=== PATIENT | male | born 1995 | race Hispanic/Latino ===

== ENCOUNTER 2017-10-29 17:06 | Emergency (ER) | payer OTHER ==
[2017-10-29] MEDS ORDERED: LIDOCAINE 1% MPF 5 ML VIAL ONE (17:21)
[2017-10-29] MEDS ORDERED: LIDOCAINE 2% W/EPI 1:200,000 MPF 20 ML VIAL IM ONE (17:28)
--- NOTE | 2017-10-29 18:03 | ER ---
Nurse's Notes [facility] Name: Braxton Chávez Age: 22 yrs Sex: Male : 1995 Arrival Date: 10/29/2017 Time: 17:10 Bed 23 Private MD: None, None Diagnosis: Laceration without foreign body of left hand Presentation: 10/29 17:12 Presenting complaint: Patient states: Cut palm of left hand with knife while slicing aj cheese just [employer]. Transition of care: patient was not received from another setting of care. Complicating Factors: There are no complicating factors for this patient. Onset of symptoms was October 29, 2017. Initial Sepsis Screen: Does the patient meet any 2 criteria? No. Patient's initial sepsis screen is negative. Does the patient have a suspected source of infection? No. Patient's initial sepsis screen is negative. Care prior to arrival: None. 17:12 Method Of Arrival: Ambulatory 17:12 Acuity: ARLEN 4 aj Triage Assessment: 17:13 General: Appears in no apparent distress. comfortable, Behavior is calm, cooperative, aj appropriate for age. Pain: Complains of pain in palm of left hand Pain currently is 4 out of 10 on a pain scale. Neuro: Level of Consciousness is awake, alert, obeys commands, Oriented to person, place, time, situation, Appropriate for age. Respiratory: Airway is patent Respiratory effort is even, unlabored, Respiratory pattern is regular, symmetrical. Derm: Skin is intact, is healthy with good turgor, Skin is pink, warm \T\ dry. normal. Injury Description: Laceration sustained to palm of left hand is clean, 0.5 to 2.5 cm long, was sustained less than 30 minutes ago. is bleeding a small amount. Historical: - Allergies: 17:13 No Known Allergies; aj - Home Meds: 17:13 None [Active]; aj - PMHx: 17:13 None; aj - PSHx: 17:13 None; aj - Immunization history:: Last tetanus immunization: up to date. - Social history:: Smoking status: Patient/guardian denies using tobacco. Screenin:28 Abuse screen: Denies threats or abuse. Nutritional screening: No deficits noted. tl3 Tuberculosis screening: No symptoms or risk factors identified. Fall Risk None identified. Assessment: 17:28 General: Appears in no apparent distress. comfortable, well groomed, well developed, tl3 well nourished, Behavior is calm, cooperative, appropriate for age, quiet. Pain: Complains of pain in palm of left hand Pain currently is 10 out of 10 on a pain scale. Neuro: Level of Consciousness is awake, alert, obeys commands, Oriented to person, place, time, situation, Appropriate for age. Cardiovascular: Heart tones S1 S2 present. Respiratory: Airway is patent Trachea midline Respiratory effort is even, unlabored, Respiratory pattern is regular, symmetrical. GI: No signs and/or symptoms were reported involving the gastrointestinal system. : No signs and/or symptoms were reported regarding the genitourinary system. EENT: No signs and/or symptoms were reported regarding the EENT system. Derm: No signs and/or symptoms reported regarding the dermatologic system. Musculoskeletal: Capillary refill < 3 seconds, in left fingers. Reports cut across hand while cutting the cheese at work. Injury Description: Laceration sustained to palm of left hand is clean, 0.5 to 2.5 cm long, not bleeding. 18:07 Reassessment: Patient appears in no apparent distress at this time. No changes from tl3 previously documented assessment. Patient and/or family updated on plan of care and expected duration. Pain level reassessed. Patient is alert, oriented x 3, equal unlabored respirations, skin warm/dry/pink. pt suturing complete and splint placed for protection of suture site. Vital Signs: 17:13 BP 124 / 66; Pulse 60; Resp 16; Temp 97.9; Pulse Ox 98% on R/A; Weight 61.23 kg; Height aj 5 ft. 4 in. (162.56 cm); Pain 5/10; 18:07 BP 122 / 68; Pulse 68; Resp 16; Pulse Ox 99% ; tl3 17:13 Body Mass Index 23.17 (61.23 kg, 162.56 cm) ED Course: 17:10 Patient arrived in ED. mr 17:10 None, None is Private Physician. mr 17:13 Triage completed. aj 17:13 Arm band placed on right wrist. Patient placed in an exam room. aj 17:15 Wilfrido Van PA is PHCP. cp 17:15 Wilfrido Parish MD is Attending Physician. cp 17:16 Yahaira Paredes, PATTIE is Primary Nurse. tl3 17:28 No apparent distress. tl3 17:28 Patient has correct armband on for positive identification. tl3 17:28 Wound care: to laceration hand soaking in saline and hibacleanse. tl3 18:07 No provider procedures requiring assistance completed. Patient did not have IV access tl3 during this emergency room visit. Administered Medications: 17:45 Drug: Lidocaine (2 %) 5 ml {Note: by Wilfrido Van.} Volume: 5 ml; Route: Infiltration; tl3 18:10 Follow up: Response: No adverse reaction tl3 Outcome: 18:03 Discharge ordered by . uriel 18:07 Discharged to home ambulatory. tl3 18:07 Condition: good 18:07 Discharge instructions given to patient, Instructed on discharge instructions, follow up and referral plans. Demonstrated understanding of instructions, follow-up care, wound care. 18:09 Patient left the ED. tl3 Signatures: Raeann Chacko, Benita Colby RN, Corey, PA PA cp Lowrey, Tammy, RN RN tl3
--- NOTE | 2017-10-29 18:04 | EDPHYS ---
Physician Documentation [facility] Name: Braxton Chávez Age: 22 yrs Sex: Male : 1995 Arrival Date: 10/29/2017 Time: 17:10 Bed 23 Private MD: None, None ED Physician Wilfrido Parish HPI: 10/29 17:20 This 22 yrs old Male presents to ER via Ambulatory with complaints of cp Laceration To Hand. 17:20 The patient has a laceration occurred at work, and there are no complicating factors. cp The injury was accidental. The laceration(s) is(are) located on the palm of left hand. 17:20 Associated signs and symptoms: Pertinent negatives: heavy bleeding, numbness distal to cp injury, suspected foreign body. Historical: - Allergies: 17:13 No Known Allergies; aj - Home Meds: 17:13 None [Active]; aj - PMHx: 17:13 None; aj - PSHx: 17:13 None; aj - Immunization history:: Last tetanus immunization: up to date. - Social history:: Smoking status: Patient/guardian denies using tobacco. ROS: 17:28 Constitutional: Negative for body aches, chills, fever, poor PO intake. cp 17:28 Eyes: Negative for injury, pain, redness, and discharge. cp 17:28 ENT: Negative for drainage from ear(s), ear pain, sore throat, difficulty swallowing, difficulty handling secretions. 17:28 Respiratory: Negative for cough, wheezing. 17:28 Abdomen/GI: Negative for abdominal pain, vomiting, diarrhea, constipation. 17:28 Skin: Positive for laceration(s), of the palm of left hand. 17:28 All other systems are negative. Exam: 10/28 17:30 Constitutional: The patient appears in no acute distress, alert, awake, well developed, cp well nourished. 17:30 Head/Face: Normocephalic, atraumatic. cp 17:30 Eyes: Periorbital structures: appear normal, Conjunctiva: normal, no exudate, no injection, Lids and lashes: appear normal, bilaterally. 17:30 ENT: External ear(s): are unremarkable, Nose: is normal, Mouth: is normal. 17:30 Chest/axilla: Inspection: normal. 17:30 Cardiovascular: Rate: normal, Rhythm: regular. 17:30 Respiratory: the patient does not display signs of respiratory distress, Respirations: normal, no use of accessory muscles, no retractions, no splinting, no tachypnea, labored breathing, is not present. 17:30 Abdomen/GI: Exam negative for discomfort, distension, guarding, Inspection: abdomen appears normal. 17:30 Musculoskeletal/extremity: ROM: intact in all extremities, Perfusion: the extremity is normally perfused throughout, Sensation intact. Tendon exam: specific tendon testing normal through active and passive range of motion 17:30 Skin: injury, laceration(s), the wound is approximately 3 cm(s), of the payan side of left hand just proximal to metacarpal head of index finger, that can be described as clean, linear, with mild bleeding. Vital Signs: 10/29 17:13 BP 124 / 66; Pulse 60; Resp 16; Temp 97.9; Pulse Ox 98% on R/A; Weight 61.23 kg; Height aj 5 ft. 4 in. (162.56 cm); Pain 5/10; 18:07 BP 122 / 68; Pulse 68; Resp 16; Pulse Ox 99% ; tl3 17:13 Body Mass Index 23.17 (61.23 kg, 162.56 cm) aj Laceration: 17:53 Wound Repair of 3cm ( 1.2in ) subcutaneous laceration to palm of left hand. Linear cp shaped.. Distal neuro/vascular/tendon intact. Anesthesia: Wound infiltrated with 3 mls of 2% lidocaine. Wound prep: Moderate cleansing by me, Wound irrigation by me. Skin closed with 5 4-0 Prolene using interrupted sutures and sterile technique. Dressed with Bacitracin, 4x4's. Patient tolerated well. MDM: 17:15 Patient medically screened. cp 17:45 Differential diagnosis: superficial laceration, tendon injury, vascular injury. cp 18:00 Data reviewed: vital signs, nurses notes, and as a result, I will discharge patient. cp 18:00 Counseling: I had a detailed discussion with the patient and/or guardian regarding: the cp historical points, exam findings, and any diagnostic results supporting the discharge/admit diagnosis, to return to the emergency department if symptoms worsen or persist or if there are any questions or concerns that arise at home. 18:00 Response to treatment: the patient's symptoms have markedly improved after treatment, cp and as a result, I will discharge patient. 10/29 17:53 Order name: Wound dressing; Complete Time: 18:11 cp 10/29 17:53 Order name: Prolene, Sutures; Complete Time: 18:10 cp 10/29 17:53 Order name: Dressing - Wound; Complete Time: 18:10 cp 10/29 17:53 Order name: Gloves, Sterile; Complete Time: 18:10 cp 10/29 17:53 Order name: Setup Suture Tray; Complete Time: 18:10 cp 10/29 17:53 Order name: Splint: aluminum volar splint; Complete Time: 18:10 cp 10/29 17:53 Order name: Adan Wrap; Complete Time: 18:10 cp Administered Medications: 17:45 Drug: Lidocaine (2 %) 5 ml {Note: by Wilfrido Van.} Volume: 5 ml; Route: Infiltration; tl3 18:10 Follow up: Response: No adverse reaction tl3 Disposition: 19:13 Co-signature as Attending Physician, Wilfrido Parish MD I agree with the assessment and [facility] plan of care. Disposition: 10/29/17 18:03 Discharged to Home. Impression: Laceration without foreign body of left hand. - Condition is Stable. - Discharge Instructions: Laceration Care, Adult. - Medication Reconciliation Form, Thank You Letter, Antibiotic Education, Prescription Opioid Use form. - Follow up: Private Physician; When: 1 - 2 days; Reason: Wound Recheck. - Problem is new. - Symptoms have improved. Signatures: Raeann Chacko RN Wilfrido Bowers MD MD cha Page, Corey, PA PA cp Lowrey, Tammy RN RN tl3
== END 2017-10-29 18:09 | disposition home or self-care (01) ==
LOC: ER 17:06
PROC: 0JQK0ZZ Repair Left Hand Subcutaneous Tissue and Fascia, Open Approach (ICD-10-PCS; principal; 2017-10-29)
DX: S61.412A Laceration without foreign body of left hand, initial encounter (principal); W45.8XXA Other foreign body or object entering through skin, initial encounter; Y93.89 Activity, other specified; Y92.89 Other specified places as the place of occurrence of the external cause; Y99.8 Other external cause status
CPT/HCPCS: 99283

== ENCOUNTER 2021-08-20 11:19 | Emergency (ER) | payer BC, OTHER ==
--- OUTSIDE RECORDS SUMMARY | 2021-08-20 11:23 | XMS REPORT | Continuity of Care Document ---
:1995 Author Organization [facility] t Address [address] [place] [address] Care Team Providers Name Role Phone Brenda Mittal Primary Care Physician Radiology Attending Clinician Unavailable RADIOLOGY Attending Clinician Unavailable Doctor Unassigned, [place] Attending Clinician Unavailable Michelle Hightower Attending Clinician Payers Payer Name Policy Type Policy Number Effective Date Expiration Date Elicia BENSON [id number] 2011 HEALTH 00:00:00 Problems Condition Condition Condition Status Onset Resolution Last Treating Co mments Source Name Details Category Date Date Treatment Clinician Date No known No known Disease Unive rs active active ity of problems problems [facility] Allergies, Adverse Reactions, Alerts Allergy Allergy Status Severity Reaction(s) Onset Inactive Treating Comm ents Source Name Type Date Date Clinician NO KNOWN Drug Active Univers ALLERGIE Class ity of S [facility] Social History Social Habit Start Date Stop Date Quantity Comments Source Exposure to Yes [facility] SARS-CoV-2 [facility] (event) Branch Tobacco use and 2012-12-28 2012-12-28 Never used Universit y of exposure 00:00:00 00:00:00 [facility] Alcohol intake 2012-12-28 2012-12-28 Current University of 00:00:00 00:00:00 non-drinker of [facility] alcohol Branch (finding) Sex Assigned At [birth year] Universit y of 00:00:00 00:00:00 [facility] Smoking Status Start Date Stop Date Source Never smoker [facility] Medications Ordered Filled Start Stop Current Ordering Indication Dosage Frequency Signature Comments Components Source Medication Medication Date Date Medication? Clinician (SIG) Name Name predniSONE 2020-0 2020- No 40mg 40 mg, Univ ers (DELTASONE) 8-25 08-25 Oral, ity of tablet 40 08:30: 07:48 [place]CE, [place] :00 dose, Tue Medical 03/06/20 at Branch 0330, TOBY famotidine 2020-0 Yes [id number] 40mg Take 1 Univers (PEPCID) 40 8-25 tablet by ity of mg tablet 00:00: mouth [place] 00 daily. Medical Branch albuterol 2020-0 Yes [id number] 2{puff} Inhale 2 Univers 90 8-25 Puffs ity of mcg/actuati 00:00: every 4 [place] as on inhaler 00 (four) Medical hours as Branch needed for Wheezing or Shortness of Breath. famotidine 2020-0 Yes [id number] 40mg Take 1 Univers (PEPCID) 40 8-25 tablet by ity of mg tablet 00:00: mouth [place] 00 daily. Medical Branch albuterol 2020-0 Yes [id number] 2{puff} Inhale 2 Univers 90 8-25 Puffs ity of mcg/actuati 00:00: every 4 [place] on inhaler 00 (four) Medical hours as Branch needed for Wheezing or Shortness of Breath. famotidine 2020-0 Yes [id number] 40mg Take 1 Univers (PEPCID) 40 8-25 tablet by ity of mg tablet 00:00: mouth [place] 00 daily. Medical Branch albuterol 2020-0 Yes [id number] 2{puff} Inhale 2 Univers 90 8-25 Puffs ity of mcg/actuati 00:00: every 4 [place] on inhaler 00 (four) Medical hours as Branch needed for Wheezing or Shortness of Breath. Immunizations Ordered Immunization Filled Immunization Date Status Commen ts Source Name Name HPV 2011-06-19 Completed University 00:00:00 [facility] Influenza Virus 2011-06-19 Completed Universit y of Vaccine 00:00:00 [facility] HPV 2011-06-19 Completed [facility] 00:00:00 [facility] Influenza Virus 2011-06-19 Completed Universit y of Vaccine 00:00:00 [facility] HPV 2011-06-19 Completed University of 00:00:00 [facility] Influenza Virus 2011-06-19 Completed Universit y of Vaccine 00:00:00 [facility] HPV 2010-04-30 Completed University of 00:00:00 [facility] Influenza Virus 2010-04-30 Completed Universit y of Vaccine 00:00:00 [facility] HPV 2010-04-30 Completed University of 00:00:00 [facility] Influenza Virus 2010-04-30 Completed Universit y of Vaccine 00:00:00 [facility] HPV 2010-04-30 Completed University of 00:00:00 [facility] Influenza Virus 2010-04-30 Completed Universit y of Vaccine 00:00:00 [facility] HPV 2010-02-25 Completed University of 00:00:00 [facility] Varicella 2010-02-25 Completed University of (varivax)(chicken 00:00:00 [place] [facility] edical pox) Branch HPV 2010-02-25 Completed University of 00:00:00 [facility] Varicella 2010-02-25 Completed University of (varivax)(chicken 00:00:00 [place] [facility] [place] pox) Branch HPV 2010-02-25 Completed University of 00:00:00 [facility] Varicella 2010-02-25 Completed University of (varivax)(chicken 00:00:00 [place] [facility] pox) Branch HEPATITIS A 2007-03-05 Completed University of 00:00:00 [facility] Meningococcal 2007-03-05 Completed University of Vaccine 00:00:00 [facility] HEPATITIS A 2007-03-05 Completed University of 00:00:00 [facility] Meningococcal 2007-03-05 Completed University of Vaccine 00:00:00 [facility] HEPATITIS A 2007-03-05 Completed University of 00:00:00 [facility] Meningococcal 2007-03-05 Completed University of Vaccine 00:00:00 [facility] HEPATITIS A 2006 Completed University of 00:00:00 [facility] Td 2006 Completed University of 00:00:00 [facility] HEPATITIS A 2006 Completed University of 00:00:00 [facility] Td 2006 Completed University of 00:00:00 [facility] HEPATITIS A 2006 Completed University of 00:00:00 [facility] Td 2006 Completed University of 00:00:00 [facility] Varicella 2005-04-22 Completed University of (varivax)(chicken 00:00:00 [facility] edical pox) Branch Varicella 2005-04-22 Completed University of (varivax)(chicken 00:00:00 [facility] edical pox) Branch Varicella 2005-04-22 Completed University of (varivax)(chicken 00:00:00 [facility] edical pox) Branch Polio (IPV/OPV) 1998-02-13 Completed Universit y of 00:00:00 [facility] DTP 1998-02-13 Completed University of 00:00:00 [facility] MMR 1998-02-13 Completed University of 00:00:00 [facility] Polio (IPV/OPV) 1998-02-13 Completed Universit y of 00:00:00 [facility] DTP 1998-02-13 Completed University of 00:00:00 [facility] MMR 1998-02-13 Completed University of 00:00:00 [facility] Polio (IPV/OPV) 1998-02-13 Completed Universit y of 00:00:00 [facility] DTP 1998-02-13 Completed University of 00:00:00 [facility] MMR 1998-02-13 Completed University of 00:00:00 [facility] DTP 1995-02-03 Completed University of 00:00:00 [facility] HIB 4 Dose Schedule 1995-02-03 Completed Unive rsity of 00:00:00 [facility] MMR 1995-02-03 Completed University of 00:00:00 [facility] DTP 1995-02-03 Completed University of 00:00:00 [facility] HIB 4 Dose Schedule 1995-02-03 Completed Unive rsity of 00:00:00 [facility] MMR 1995-02-03 Completed University of 00:00:00 [facility] DTP 1995-02-03 Completed University of 00:00:00 [facility] HIB 4 Dose Schedule 1995-02-03 Completed Unive rsity of 00:00:00 [facility] MMR 1995-02-03 Completed University of 00:00:00 [facility] DTP 1994 Completed University of 00:00:00 [facility] HIB 4 Dose Schedule 1994 Completed Unive rsity of 00:00:00 [facility] Hep B, Adol or Pedi 1994 Completed Unive rsity of Dosage 00:00:00 [facility] Polio (IPV/OPV) 1994 Completed Universit y of 00:00:00 [facility] Branch DTP 1994 Completed University of 00:00:00 [facility] HIB 4 Dose Schedule 1994 Completed Unive rsity of 00:00:00 [place] [facility] Hep B, Adol or Pedi 1994 Completed Unive rsity of Dosage 00:00:00 [facility] Polio (IPV/OPV) 1994 Completed Universit y of 00:00:00 [facility] DTP 1994 Completed University of 00:00:00 [facility] HIB 4 Dose Schedule 1994 Completed Unive rsity of 00:00:00 [facility] Hep B, Adol or Pedi 1994 Completed Unive rsity of Dosage 00:00:00 [facility] Polio (IPV/OPV) 1994 Completed Universit y of 00:00:00 [facility] DTP 1994 Completed University of 00:00:00 [facility] HIB 4 Dose Schedule 1994 Completed Unive rsity of 00:00:00 [facility] Polio (IPV/OPV) 1994 Completed Universit y of 00:00:00 [facility] DTP 1994 Completed University of 00:00:00 [facility] HIB 4 Dose Schedule 1994 Completed Unive rsity of 00:00:00 [facility] Branch Polio (IPV/OPV) 1994 Completed Universit y of 00:00:00 [facility] DTP 1994 Completed University of 00:00:00 [facility] HIB 4 Dose Schedule 1994 Completed Unive rsity of 00:00:00 [facility] Polio (IPV/OPV) 1994 Completed Universit y of 00:00:00 [facility] DTP 1994 Completed University of 00:00:00 [facility] HIB 4 Dose Schedule 1994 Completed Unive rsity of 00:00:00 [facility] Branch Hep B, Adol or Pedi 1994 Completed Unive rsity of Dosage 00:00:00 [facility] Polio (IPV/OPV) 1994 Completed Universit y of 00:00:00 [facility] DTP 1994 Completed University of 00:00:00 [facility] HIB 4 Dose Schedule 1994 Completed Unive rsity of 00:00:00 [facility] Hep B, Adol or Pedi 1994 Completed Unive rsity of Dosage 00:00:00 [facility] Polio (IPV/OPV) 1994 Completed Universit y of 00:00:00 [facility] DTP 1994 Completed University of 00:00:00 [facility] HIB 4 Dose Schedule 1994 Completed Unive rsity of 00:00:00 [facility] Hep B, Adol or Pedi 1994 Completed Unive rsity of Dosage 00:00:00 [facility] Polio (IPV/OPV) 1994 Completed Universit y of 00:00:00 [facility] Hep B, Adol or Pedi 1994 Completed Unive rsity of Dosage 00:00:00 [facility] Hep B, Adol or Pedi 1994 Completed Unive rsity of Dosage 00:00:00 [facility] Hep B, Adol or Pedi 1994 Completed Unive rsity of Dosage 00:00:00 [facility] Vital Signs Vital Name Observation Time Observation Value Comments Source Systolic blood 2020-03-06 06:27:00 151 mm[Hg] Univer sity of pressure [facility] Diastolic blood 2020-03-06 06:27:00 87 mm[Hg] Unive rsity of pressure [facility] Body temperature 2020-03-06 06:27:00 36.67 [facility] rate 2020-03-06 06:27:00 20 /min [facility] Body weight 2020-03-06 06:27:00 63.504 [facility] Oxygen saturation in 2020-03-06 06:27:00 99 /min [facility] Arterial blood by [facility] Pulse oximetry Branch Systolic blood 2020-03-06 06:27:00 151 mm[Hg] Univer sity of pressure [facility] Diastolic blood 2020-03-06 06:27:00 87 mm[Hg] Unive rsity of pressure [facility] Body temperature 2020-03-06 06:27:00 36.67 [facility] Respiratory rate 2020-03-06 06:27:00 20 /min [facility] Body weight 2020-03-06 06:27:00 63.504 kg [facility] Oxygen saturation in 2020-03-06 06:27:00 99 /min [facility] Arterial blood by [facility] Pulse oximetry [place] Procedures Procedure Date / Time Performed Performing Clinician [facility] e ASSIGNMENT OF BENEFITS 2021-04-08 20:02:23 Doctor Unassigned, No [facility] XR CHEST 1 VW 2020-03-06 06:50:17 Jai Sheth [place] o f [facility] NOTICE OF PRIVACY 2020-03-06 06:17:57 Doctor Unassigned, No [facility] Encounters Start End Encounter Admission Attending Care Care Encounter Source Date/Time Date/Time Type Type Clinicians Facility Department ID 2021-04-08 2021-04-08 Hospital Radiology [facility] [id number] Univers 15:05:05 23:59:00 Encounter Vamsi [id number] ity of [place] [id number] [facility] [id number] [facility] 806 Branch 2021-04-08 2021-04-08 Outpatient R RADIOLOGY [facility] [id number] Univers 00:00:00 00:00:00 ity of [facility] 2021-04-08 2021-04-08 Orders Doctor QUAN [id number] Univers 00:00:00 00:00:00 Only Unassigned, MEHRDAD [id number] ity of [place] [facility] [id number] [place] [address] [id number] [facility] 009 Branch 2020-03-06 2020-03-06 Emergency Jai Sheth [facility] [id number] 01:29:00 02:55:00 Michelle Agustin [id number] [place] [id number] [place] [id number] 2020-03-06 2020-03-06 Emergency Jai Sheth [facility] [id number] Univers 01:29:00 02:55:00 Michelle Agustin [id number] i ty of [place] [id number] [facility] [id number] [place] [id number] Branch 2020-03-06 2020-03-06 Emergency X [facility] ERT [id number] Univers 01:29:00 01:29:00 ity of [facility] Results This patient has no known results.
[2021-08-20 12:22] LABS: Absolute Lymphocytes (CBC) 1.5 K/uL (0.7-4.9); Hematocrit 45.8 % (39.6-49.0); Lymphocytes % 14.7 % (15.3-44.8); MPV 7.5 fL (7.6-11.3); RBC Red Blood Cell Count 4.93 M/uL (4.33-5.43)
[2021-08-20] MEDS ORDERED: MAGNES/ALUMIN/SIMET 30ML UCUP ONE (12:31)
[2021-08-20] MEDS ORDERED: ONDANSETRON 4 MG/2 ML VIAL ONE (12:32)
[2021-08-20] MEDS ORDERED: LIDOCAINE VISCOUS 2% SOLN 15 ML UDC ONE (12:32)
[2021-08-20] MEDS ORDERED: FAMOTIDINE 20 MG/2 ML VIAL IV ONE (12:32)
[2021-08-20] MEDS ORDERED: NA CHLORIDE 0.9% 1,000 ML ONE (12:32)
[2021-08-20 12:39] LABS: Albumin 4.2 g/dL (3.4-5.0); Bilirubin Direct 0.2 mg/dL (0-0.2); Bilirubin Total 0.7 mg/dL (0.2-1.0); Potassium 3.2 mmol/L (3.5-5.1); Protein, Total 7.9 g/dL (6.4-8.2)
[2021-08-20 12:43] LABS: Urine Blood Negative (Negative); Urine Glucose Negative (Negative); Urine Protein Negative (Negative); Urine Specific Gravity 1.015 (1.005-1.030); Urine pH 8.5 (5.0-7.0)
--- NOTE | 2021-08-20 13:12 | RAD REPORT ---
EXAM DESCRIPTION: CT - Abdomen Pelvis W Contrast - 08/20/2021 12:48 pm CLINICAL HISTORY: ABD PAIN COMPARISON: No comparisons TECHNIQUE: Biphasic, helical CT imaging of the abdomen and pelvis was performed following 100 ml non -ionic IV contrast. No oral contrast administered. All CT scans are performed using dose optimization technique as appropriate and may include automated exposure control or mA/KV adjustment according to patient size. FINDINGS: No suspicious findings in the lung bases. The liver, spleen, and pancreas show no suspicious findings. Gallbladder and biliary tree are also wi thout suspicious finding. Symmetric renal function is seen with no hydronephrosis or suspicious renal mass. No pyelonephritis o r acute parenchymal process. No bladder abnormalities identified in the contracted urinary bladder. N o adrenal abnormalities. No dilated bowel loops or bowel wall thickening. Appendix is normal. No free air, free fluid or infla mmatory stranding. No hernia, mass or bulky lymphadenopathy. No suspicious bony findings. IMPRESSION: Contrast enhanced CT abdomen and pelvis showing no significant or suspicious finding.
--- NOTE | 2021-08-20 15:04 | EDPHYS ---
Physician Documentation [facility] Name: Braxton Chávez Age: 26 yrs Sex: Male : 1995 Arrival Date: 08/20/2021 Time: 11:22 Bed 6 Private MD: ED Physician Luis Fajardo HPI: 08/20 12:35 This 26 yrs old Male presents to ER via Ambulatory with complaints of ma2 Abdominal Pain. 12:35 Associated signs and symptoms: Pertinent negatives: anorexia, constipation, dysuria, ma2 fever, headache, testicular pain, vomiting. Patient has epigastric pain for 4 weeks on and off, got worse last 2 days, also had vomiting nonbloody, nonbilious over the last 2 days.. Historical: - Allergies: 11:53 No Known Allergies; jl7 - Home Meds: 11:53 Famotidine Oral [Active]; jl7 - PMHx: 11:53 GERD; jl7 - PSHx: 11:53 None; jl7 - Immunization history:: Client reports receiving the 2nd dose of the Covid vaccine, Moderna. - Social history:: Smoking status: Patient denies any tobacco usage or history of. - Family history:: not pertinent. ROS: 12:35 Constitutional: Negative for fever, chills, and weight loss. ma2 12:35 All other systems are negative. Exam: 12:35 Constitutional: This is a well developed, well nourished patient who is awake, alert, ma2 and in no acute distress. Chest/axilla: Normal chest wall appearance and motion. Nontender with no deformity. No lesions are appreciated. Cardiovascular: Regular rate and rhythm with a normal S1 and S2. No gallops, murmurs, or rubs. Normal PMI, no JVD. No pulse deficits. Respiratory: Lungs have equal breath sounds bilaterally, clear to auscultation and percussion. No rales, rhonchi or wheezes noted. No increased work of breathing, no retractions or nasal flaring. Abdomen/GI: Soft, non-tender, with normal bowel sounds. No distension or tympany. No guarding or rebound. No evidence of tenderness throughout. MS/ Extremity: Pulses equal, no cyanosis. Neurovascular intact. Full, normal range of motion. Neuro: Awake and alert, GCS 15, oriented to person, place, time, and situation. Cranial nerves II-XII grossly intact. Motor strength 5/5 in all extremities. Sensory grossly intact. Cerebellar exam normal. Normal gait. Vital Signs: 11:51 BP 143 / 71; Pulse 89; Resp 17; Temp 98.4; Pulse Ox 100% on R/A; Weight 64.86 kg; jl7 Height 5 ft. 4 in. (162.56 cm); Pain 7/10; 14:15 BP 120 / 60; Pulse 72; Resp 16; Pulse Ox 98% ; vg1 15:28 BP 113 / 73; Pulse 66; Resp 18; Temp 97.2; Pulse Ox 98% on R/A; ph 11:51 Body Mass Index 24.55 (64.86 kg, 162.56 cm) jl7 MDM: 11:54 Patient medically screened. ma2 15:02 Differential diagnosis: gastritis, gastroesophageal reflux disease, Irritable bowel ma2 syndrome, pancreatitis. Data reviewed: vital signs, nurses notes, EMS record, shelter records. Counseling: I had a detailed discussion with the patient and/or guardian regarding: the historical points, exam findings, and any diagnostic results supporting the discharge/admit diagnosis, the presence of at least one elevated blood pressure reading (>120/80) during this emergency department visit, lab results, radiology results, the need for outpatient follow up. Response to treatment: the patient's symptoms have markedly improved after treatment. 08/20 12:04 Order name: Basic Metabolic Panel; Complete Time: 13:45 ph 08/20 12:04 Order name: CBC with Diff; Complete Time: 13:45 ph 08/20 12:04 Order name: Hepatic Function; Complete Time: 13:45 ph 08/20 12:04 Order name: Lipase; Complete Time: 13:45 ph 08/20 12:26 Order name: CT Abd/Pelvis - IV Contrast Only; Complete Time: 13:45 ma2 08/20 12:42 Order name: Urine Dipstick-Ancillary EDMS 08/20 12:04 Order name: IV Saline Lock; Complete Time: 12:12 ph 08/20 12:04 Order name: Labs collected and sent; Complete Time: 12:12 ph 08/20 12:04 Order name: Urine Dipstick-Ancillary (obtain specimen); Complete Time: 12:43 ph Administered Medications: 12:32 Drug: Zofran (Ondansetron) 4 mg Route: IVP; Site: right antecubital; vg1 15:28 Follow up: Response: No adverse reaction ph 12:32 Drug: NS 0.9% 1000 ml Route: IV; Rate: 1 bolus; Site: right antecubital; vg1 15:29 Follow up: Response: No adverse reaction; IV Status: Completed infusion; IV Intake: ph 1000ml 12:34 Drug: Pepcid (famotidine) 20 mg Route: IVP; Site: right antecubital; vg1 15:28 Follow up: Response: No adverse reaction ph 12:35 Drug: GI Cocktail without - (Maalox Suspension 30 ml, Lidocaine Liquid 2 % 15 vg1 ml) Route: PO; 15:28 Follow up: Response: No adverse reaction ph Disposition Summary: 08/20/21 15:03 Discharge Ordered Location: Home ma2 Condition: Stable ma2 Diagnosis - Upper abdominal pain, unspecified ma2 Followup: ma2 - With: Juwan Rodriguez MD - When: Tomorrow - Reason: Continuance of care Discharge Instructions: - Discharge Summary Sheet ma2 - Abdominal Pain, Adult ma2 Forms: - Medication Reconciliation Form ma2 - Thank You Letter ma2 - Antibiotic Education ma2 - Prescription Opioid Use ma2 Prescriptions: - Zofran 4 mg Oral Tablet - take 1 tablet by ORAL route every 12 hours As needed; 20 tablet; Refills: 0, ma2 Product Selection Permitted - Pepcid 20 mg Oral Tablet - take 1 tablet by ORAL route once daily for 10 days; 10 tablet; Refills: 0, ma2 Product Selection Permitted Signatures: Dispatcher [employer] Luciana Rubio, RN RN Gene Edwards, RN RN jl7 Luis Fajardo MD MD ma2 Glory Kim RN RN vg1
--- NOTE | 2021-08-20 15:04 | ER ---
Nurse's Notes [facility] Name: Braxton Chávez Age: 26 yrs Sex: Male : 1995 Arrival Date: 08/20/2021 Time: 11:22 Bed 6 Private MD: Diagnosis: Upper abdominal pain, unspecified Presentation: 08/20 11:51 Chief complaint: Patient states: Diffuse abdominal pain x 1 day, reports N/V, denies jl7 diarrhea. Coronavirus screen: At this time, the client does not indicate any symptoms associated with coronavirus-19. Ebola Screen: No symptoms or risks identified at this time. Initial Sepsis Screen: Does the patient meet any 2 criteria? No. Patient's initial sepsis screen is negative. Does the patient have a suspected source of infection? No. Patient's initial sepsis screen is negative. Risk Assessment: Do you want to hurt yourself or someone else? Patient reports no desire to harm self or others. Onset of symptoms was August 19, 2021. 11:51 Method Of Arrival: Ambulatory [facility] 11:51 Acuity: ARLEN 3 jl7 Triage Assessment: 11:53 General: Appears in no apparent distress. uncomfortable, Behavior is calm, cooperative, jl7 appropriate for age. Pain: Complains of pain in abdomen Pain currently is 7 out of 10 on a pain scale. GI: Reports nausea, vomiting. Historical: - Allergies: 11:53 No Known Allergies; jl7 - Home Meds: 11:53 Famotidine Oral [Active]; jl7 - PMHx: 11:53 GERD; jl7 - PSHx: 11:53 None; jl7 - Immunization history:: Client reports receiving the 2nd dose of the Covid vaccine, Moderna. - Social history:: Smoking status: Patient denies any tobacco usage or history of. - Family history:: not pertinent. Screenin:29 Abuse screen: Denies threats or abuse. Denies injuries from another. Nutritional ph screening: No deficits noted. Tuberculosis screening: No symptoms or risk factors identified. Fall Risk None identified. Assessment: 12:16 General: Appears in no apparent distress. uncomfortable, Behavior is calm, cooperative. vg1 Pain: Complains of pain in epigastric area, umbilical area, right lower quadrant and left lower quadrant Pain currently is 5 out of 10 on a pain scale. at worst was 9 out of 10 on a pain scale. Pain began 2 months. Neuro: Level of Consciousness is awake, alert, obeys commands, Oriented to person, place, time, situation. Cardiovascular: Patient's skin is warm and dry. Respiratory: Airway is patent Respiratory effort is even, unlabored. GI: Abdomen is flat, non-distended, Last BM was August 19, 2021. Bowel sounds present X 4 quads. Abdomen is tender to palpation in epigastric area and left upper quadrant Reports nausea, vomiting. : No signs and/or symptoms were reported regarding the genitourinary system. EENT: No signs and/or symptoms were reported regarding the EENT system. Derm: Skin is intact, is healthy with good turgor. Musculoskeletal: Circulation, motion, and sensation intact. 13:17 Reassessment: Patient appears in no apparent distress at this time. Patient and/or vg1 family updated on plan of care and expected duration. Pain level reassessed. Patient is alert, oriented x 3, equal unlabored respirations, skin warm/dry/pink. Rates ABD pain 3/10 Patient states feeling better. 14:30 Reassessment: Patient appears in no apparent distress at this time. No changes from vg1 previously documented assessment. Patient and/or family updated on plan of care and expected duration. Pain level reassessed. Patient is alert, oriented x 3, equal unlabored respirations, skin warm/dry/pink. 15:27 Reassessment: Patient appears in no apparent distress at this time. Patient and/or ph family updated on plan of care and expected duration. Pain level reassessed. Patient is alert, oriented x 3, equal unlabored respirations, skin warm/dry/pink. Pt instructed to follow up w/ GI, d/c home. Vital Signs: 11:51 BP 143 / 71; Pulse 89; Resp 17; Temp 98.4; Pulse Ox 100% on R/A; Weight 64.86 kg; jl7 Height 5 ft. 4 in. (162.56 cm); Pain 7/10; 14:15 BP 120 / 60; Pulse 72; Resp 16; Pulse Ox 98% ; vg1 15:28 BP 113 / 73; Pulse 66; Resp 18; Temp 97.2; Pulse Ox 98% on R/A; ph 11:51 Body Mass Index 24.55 (64.86 kg, 162.56 cm) jl7 ED Course: 11:22 Patient arrived in ED. ds1 11:53 Triage completed. jl7 11:53 Arm band placed on right wrist. jl7 11:54 Luis Fajardo MD is Attending Physician. ma2 11:55 Luciana Bledsoe, RN is Primary Nurse. ph 12:17 Initial lab(s) drawn, by ED staff, sent to lab. Inserted saline lock: 20 gauge in right vg1 antecubital area, using aseptic technique. ,using aseptic technique. completed by KJ, dye lab technician Blood collected. 12:48 CT Abd/Pelvis - IV Contrast Only In Process Unspecified. EDMS 15:03 Juwan Rodriguez MD is Referral Physician. ma2 15:27 Luciana Bledsoe, RN is Primary Nurse. ph 15:29 Patient has correct armband on for positive identification. Bed in low position. Call ph light in reach. Side rails up X 1. Pulse ox on. NIBP on. 15:29 No provider procedures requiring assistance completed. IV discontinued, intact, ph bleeding controlled, No redness/swelling at site. Pressure dressing applied. Administered Medications: 12:32 Drug: Zofran (Ondansetron) 4 mg Route: IVP; Site: right antecubital; vg1 15:28 Follow up: Response: No adverse reaction ph 12:32 Drug: NS 0.9% 1000 ml Route: IV; Rate: 1 bolus; Site: right antecubital; vg1 15:29 Follow up: Response: No adverse reaction; IV Status: Completed infusion; IV Intake: ph 1000ml 12:34 Drug: Pepcid (famotidine) 20 mg Route: IVP; Site: right antecubital; vg1 15:28 Follow up: Response: No adverse reaction ph 12:35 Drug: GI Cocktail without - (Maalox Suspension 30 ml, Lidocaine Liquid 2 % 15 vg1 ml) Route: PO; 15:28 Follow up: Response: No adverse reaction ph Intake: 15:29 IV: 1000ml; Total: 1000ml. ph Outcome: 15:03 Discharge ordered by . ma2 15:29 Discharged to home ambulatory. ph 15:29 Condition: good 15:29 Discharge instructions given to patient, Instructed on discharge instructions, follow up and referral plans. medication usage, Demonstrated understanding of instructions, follow-up care, medications, Prescriptions given X 2. 15:30 Patient left the ED. ph Signatures: Dispatcher [employer] [facility] Mirella Riley ds1 Luciana Bledsoe, RN RN ph Gene Olvera RN RN jl7 Luis Fajardo MD MD ma2 Glory Kim RN RN vg1
[2021-08-20 16:20] VITALS: O2SAT 98
[2021-08-20 16:22] VITALS: BP 113/73; TEMP 97.2
== END 2021-08-20 15:30 | disposition home or self-care (01) ==
LOC: ER 11:19
DX: R10.13 Epigastric pain (principal); K21.9 Gastro-esophageal reflux disease without esophagitis
CPT/HCPCS: 85025; 80048; 36415; 80076; 81003; 83690; 74177; Q9967; J7030; J2405; 96361; 96374; 96375; 99284